=== PATIENT | male | born 1990 | race Caucasian/White ===

== ENCOUNTER 2016-09-20 08:50 | Emergency (ER) | payer OTHER ==
[~2016-09-20] VITALS: Ht 175.3 cm; Wt 120.2 kg
[2016-09-20 08:54] VITALS: BP 138/90; PULSE 73; RESP 18; TEMP 97.6; O2SAT 99
--- NOTE | 2016-09-20 09:12 | PD ---
HPI Chief Complaint: Musculoskeletal Complaint Time Seen by Provider: 09:07 Travel History International Travel<30 days: No Contact w/Intl Traveler<30days: No Traveled to known affect area: No History of Present Illness HPI 26-year-old male with history of no significant past medical issues, presents to the ER today because of left ankle pain that started yesterday and is slowly getting worse to the point where he cannot bear weight on the left ankle. He states this become more swollen as well. He denies any fevers. He denies any IV drug use, recent new sexual contacts, penile discharge, burning on urination. He denies any injuries or recent increase in activity. Modifying Factors: None Associated Signs & Symptoms: Left ankle pain and swelling Risk Factors: None PFSH Past Medical History Medical History: Denies Significant Hx Diminished Hearing: No Influenza Vaccination: No Past Surgical History Surgical History: No Previous Surgery Social History Alcohol Use: No Tobacco Use: No Substance Use: No Allergies-Medications (Allergen,Severity, Reaction): Coded Allergies: No Known Allergies (Unverified , 09/20/16) Reported Meds & Prescriptions Reported Meds & Active Scripts Active No Active Prescriptions or Reported Medications Review of Systems Except as stated in HPI: all other systems reviewed are Neg Physical Exam Narrative GENERAL: Well-developed young white male patient currently in mild distress at awake and oriented 3. SKIN: Focused skin assessment warm/dry. HEAD: Atraumatic. Normocephalic. EYES: Pupils equal and round. No scleral icterus. No injection or drainage. ENT: No nasal bleeding or discharge. Mucous membranes pink and moist. NECK: Trachea midline. No JVD. CARDIOVASCULAR: Regular rate and rhythm. No murmur appreciated. RESPIRATORY: No accessory muscle use. Clear to auscultation. Breath sounds equal bilaterally. GASTROINTESTINAL: Abdomen soft, non-tender, nondistended. Hepatic and splenic margins not palpable. MUSCULOSKELETAL: No obvious deformities. No clubbing. No cyanosis. No edema. EXTREMITIES: No clubbing, cyanosis, or edema. There is notable edema and tenderness to palpation of the left ankle especially over the lateral malleolus area. There is no significant erythema however. It is tender with range of motion. I do not palpate any fluctuance. NEUROLOGICAL: Awake and alert. No obvious cranial nerve deficits. Motor grossly within normal limits. Normal speech. PSYCHIATRIC: Appropriate mood and affect; insight and judgment normal. Data Data Last Documented VS Vital Signs Date Time Temp Pulse Resp B/P Pulse Ox O2 Delivery O2 Flow Rate FiO2 09/20/16 08:54 97.6 73 18 138/90 99 Orders Complete Blood Count With Diff (09/20/16 09:07) Basic Metabolic Panel (Bmp) (09/20/16 09:07) C-Reactive Protein (Crp) (09/20/16 09:07) W[place]gren Sedimentation Rate (09/20/16 09:07) Ankle, Complete ([id number]) (09/20/16 09:07) Urinalysis - C+S If Indicated (09/20/16 09:12) Gc And Chlamydia Pcr (09/20/16 09:12) Sodium Chloride 0.9% Flush (Ns Flush) (09/20/16 09:15) Splint Or Brace Apply/Monitor (09/20/16 11:37) Crutches (09/20/16 11:37) Labs Laboratory Tests Test 09/20/16 09/20/16 09:15 09:20 White Blood Count 7.7 TH/MM3 Red Blood Count 5.10 MIL/MM3 Hemoglobin 15.0 GM/DL Hematocrit 44.5 % Mean Corpuscular Volume 87.2 FL Mean Corpuscular Hemoglobin 29.4 PG Mean Corpuscular Hemoglobin 33.7 % Concent Red Cell Distribution Width 13.1 % Platelet Count 237 TH/MM3 Mean Platelet Volume 7.9 FL Neutrophils (%) (Auto) 60.0 % Lymphocytes (%) (Auto) 30.4 % Monocytes (%) (Auto) 6.4 % Eosinophils (%) (Auto) 2.5 % Basophils (%) (Auto) 0.7 % Neutrophils # (Auto) 4.6 TH/MM3 Lymphocytes # (Auto) 2.3 TH/MM3 Monocytes # (Auto) 0.5 TH/MM3 Eosinophils # (Auto) 0.2 TH/MM3 Basophils # (Auto) 0.1 TH/MM3 CBC Comment DIFF FINAL Differential Comment Erythrocyte Sedimentation Rate 3 mm/hr Sodium Level 142 MEQ/L Potassium Level 3.8 MEQ/L Chloride Level 106 MEQ/L Carbon Dioxide Level 26.7 MEQ/L Anion Gap 9 MEQ/L Blood Urea Nitrogen 11 MG/DL Creatinine 1.00 MG/DL Estimat Glomerular Filtration 90 ML/MIN Rate Random Glucose 125 MG/DL Calcium Level 8.9 MG/DL C-Reactive Protein 0.61 MG/DL Urine Collection Type CLEAN CATCH Urine Color YELLOW Urine Turbidity CLEAR Urine pH 6.0 Urine Specific [place] 1.016 Urine Protein NEG mg/dL Urine Glucose (UA) NEG mg/dL Urine Ketones NEG mg/dL Urine Occult Blood NEG Urine Nitrite NEG Urine Bilirubin NEG Urine Leukocyte Esterase NEG Urine Squamous Epithelial 0-5 /hpf Cells Microscopic Urinalysis Comment CULT NOT INDICATED MDM Medical Decision Making Medical Screen Exam Complete: Yes Emergency Medical Condition: Yes Medical Record Reviewed: Yes Interpretation(s) Laboratory Tests Test 09/20/16 09:15 Random Glucose 125 MG/DL (74-106) C-Reactive Protein 0.61 MG/DL (0.00-0.30) Last 24 hours Impressions Ankle X-Ray 09/20/16 0907 Signed Impressions: Service Date/Time: Wednesday, September 20, 2016 10:20 - CONCLUSION: No acute disease or evidence of significant arthropathy. Doug Loja MD Differential Diagnosis Left ankle pain and swellingankle strain versus osteoarthritis versus septic arthritis Narrative Course Patient does not have risk factors such as IV drug use or sexually transmitted disease risk factors for septic arthritis. He has been afebrile white count is fairly unremarkable with unremarkable sedimentation rate. At this point, x-ray did not show any signs of acute processes. Patient now admits that he has been playing handball more in the past few days and it started hurting 2 days after the episode. It is quite possible that he may have some underlying strain or sprain processes. The tenderness seems to be more pronounced over the lateral malleolus. My plan would be to put him in a premade ankle splint and crutches and have him ice the area and elevate. He should keep off of the ankle for the next week. Return for any worsening in pain or new symptoms as needed. He should return for any worsening in manifestation of joint pain, swelling, and new symptoms. The plan was discussed with the patient and he states understanding. Diagnosis Primary Impression: Ankle pain, left Med/Other Pt SpecificInfo: Prescription(s) given Scripts Ibuprofen (Motrin Ib)200 Mg Doldpv343 Mg PO QID PRN (PAIN SCALE 1 TO 10) #20 Prov:Moisés Chan MD 09/20/16 Disposition: 01 DISCHARGE HOME Condition: Stable [place],Rewadee MD Sep 20, 2016 09:12
[2016-09-20] MEDS ORDERED: SODIUM CHLORIDE 0.9% FLUSH 10 ML FLUSH IVF PRN (09:15)
[2016-09-20 09:23] LABS: AUTOMATED NEUTROPHIL # 4.6 TH/MM3 (1.8-7.7); BASOPHIL # 0.1 TH/MM3 (0-0.2); BASOPHIL % 0.7 % (0.0-2.0); EOSINOPHIL # 0.2 TH/MM3 (0-0.4); EOSINOPHIL % 2.5 % (0.0-4.0); HEMATOCRIT 44.5 % (39.0-51.0); HEMO FLAGS DIFF FINAL; LYMPH % 30.4 % (9.0-44.0); LYMPHOCYTE # 2.3 TH/MM3 (1.0-4.8); MEAN CELL VOLUME 87.2 FL (80.0-100.0); MEAN CORPUSCULAR HEMOGLOBIN 29.4 PG (27.0-34.0); MEAN CORPUSCULAR HGB CONC 33.7 % (32.0-36.0); MONO % 6.4 % (0.0-8.0); PLATELET COUNT 237 TH/MM3 (150-450); RED CELL DISTRIBUTION WIDTH 13.1 % (11.6-17.2); WHITE BLOOD COUNT 7.7 TH/MM3 (4.0-11.0)
[2016-09-20 09:42] LABS: BLOOD, URINE NEG (NEG); GLUCOSE,URINE NEG (NEG); KETONE, URINE NEG (NEG); NITRITE,URINE NEG (NEG)
[2016-09-20 09:51] LABS: COMMENT (UR) CULT NOT INDICATED; CULTURE IF INDICATED CULT NOT INDICATED; METHOD OF COLLECTION CLEAN CATCH; SQUAMOUS EPITHELIAL CELL URINE 0-5 /hpf (0-5); URINE COLOR YELLOW (YELLW/STRAW)
[2016-09-20 10:00] LABS: BICARBONATE 26.7 MEQ/L (21.0-32.0)
[2016-09-20 10:03] LABS: POTASSIUM 3.8 MEQ/L (3.5-5.1)
--- NOTE | 2016-09-20 11:12 | RADRPT ---
EXAM DATE/TIME: 09/20/2016 10:20 [facility] COMPARISON: No previous studies available for comparison. INDICATIONS : Onset of left ankle pain, no known injury MEDICAL HISTORY : None. SURGICAL HISTORY : None. ENCOUNTER: Initial ACUITY: 2 days PAIN SCORE: 9/10 LOCATION: Left ankle FINDINGS: Three view exam was performed of the left ankle. The bony structures are in normal alignment. No ev idence of fracture, dislocation, or soft tissue swelling. The ankle mortise is intact. No radiopaqu e foreign bodies are seen. Bony mineralization is normal. CONCLUSION: No acute disease or evidence of significant arthropathy. Doug Loja MD on September 20, 2016 at 11:10 Board Certified Radiologist. This report was verified electronically.
[2016-09-20] MEDS ORDERED: IBUP-1129 PO (11:43)
[2016-09-20 11:51] VITALS: BP 148/80; PULSE 68; RESP 16; O2SAT 98
[2016-09-20 13:35] LABS: CHLAMYDIA PCR NOT DETECTED (NOT DETECT); NEISSERIA PCR NOT DETECTED (NOT DETECT)
== END 2016-09-20 12:01 | disposition home or self-care (01) ==
LOC: PHED 08:50
DX: M25.572 Pain in left ankle and joints of left foot (principal); R22.42 Localized swelling, mass and lump, left lower limb
CPT/HCPCS: 73610; 80048; 81001; 85025; 85652; 86140; 87491; 87591; 99284; E0113; L1906